=== PATIENT | male | born 1935 | race Caucasian/White ===

== ENCOUNTER 2016-10-11 17:01 | Emergency (ER) | payer MEDICARE ==
[~2016-10-11] VITALS: Ht 185.4 cm; Wt 75.3 kg
[~2016-10-11 17:01] MED LIST: ACET325T9 PO; ASPI81TA50 PO; CARV25TA PO; CHOL10003 PO; CYAN10002 IJ; FLUT16SP NS; FLUT9.9S NS; LEVO25TA4 PO; LISI-334 PO; MAG355OR17 PO; MAGN2400 PO; METH29OI TP; MIRT15TA3 PO; MIRT15TA5 PO; MIRT7.5T8 PO; OLAN5TAB7 PO; OXYB5TAB7 PO; SERT25TA4 PO; TRAZ50TA15 PO; [UNRECOGNIZED DRUG - CODE] TP
[2016-10-11] MEDS ORDERED: IOHEXOL 300 MG/ML 75 ML VIAL. IV ONE (17:15)
[2016-10-11] MEDS ORDERED: CONTRAST GIVEN MC PRN (17:30)
--- NOTE | 2016-10-11 17:34 | PHYS DOC ---
General Chief Complaint: DIFFICULTY SWALLOWING Stated Complaint: DIFF SWALLOWING Time Seen by MD: 17:08 Source: patient, family (daughter) Exam Limitations: no limitations Problems: History of Present Illness Initial Comments Pt is 81/M to ED with difficulty swallowing. Pt/daughter state that immediately prior to arrival pt ate a small piece of chicken diced/prepared by his daughter. Pt choked/struggled to get it down and had dry cough. Next bite was pudding, pt swallowed it down and vomitted. Pt hasn't eaten anything since, he's been spitting his secretions. No prior stricture or dilatation, pt has h/o GERD symptoms and used to smoke cigars. No cp/sob/fever/chills/diarrhea, no blood in emesis. Daughter states pt has had increasing difficulty swallowing recently but things haven't gone this far. She also mentions that he has CHF, he's had increased LE edema past week according to daughter. Timing/Duration: 1-3 hours Severity: moderate Modifying Factors: worse with eating, improves with rest Associated Symptoms: cough, nausea/vomiting, other Allergies: Coded Allergies: No Known Drug Allergies (Unverified , 09/13/16) Past Medical History Medical History: other (HTN, CAD, CHF) Surgical History: pacemaker (defibrillator) Social History Smoker: quit greater than 1 year, cigar Alcohol: occasionally Drugs: none Review of Systems Constitutional: denies chills, denies fever Respiratory: coughdenies shortness of breath, denies wheezing Cardiovascular: see HPIdenies chest pain, edemadenies palpitations Gastrointestinal: see HPIdenies abdominal pain, denies constipation, denies diarrhea, nausea vomiting Genitourinary: denies dysuria, denies frequency, denies hematuria Musculoskeletal: denies back pain, denies joint swelling, denies neck pain Psychiatric/Neurological: denies headache, denies seizure, denies weakness Physical Exam General Appearance: WD/WN, mild distress (appears comfortable, spitting secretions) Eyes: bilateral eye EOMI, bilateral eye PERRL, bilateral eye normal inspection Ear, Nose, Throat: hearing grossly normal, normal ENT inspection, normal pharynx Neck: non-tender, supple Respiratory: chest non-tender, no respiratory distress, other (coarse BS b/l) Cardiovascular: normal peripheral pulses, regular rate, rhythm Gastrointestinal: normal bowel sounds, non tender, soft (no mass) Back: no CVA tenderness, no vertebral tenderness Extremities: normal range of motion, non-tender (3+ pitting LE edema w/ compression stocking) 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 See his documentation for results/disposition. CORAZON GRIFFIN DO Oct 11, 2016 17:34
[2016-10-11] MEDS ORDERED: ONDANSETRON PF 4 MG/2 ML VIAL. IV ONE (17:40)
[2016-10-11] MEDS ORDERED: FAMOTIDINE 20 MG/2 ML VIAL IVP ONE (17:40)
[2016-10-11] MEDS ORDERED: GLUCAGON,HUMAN RECOMBINANT 1 MG KIT. IV ONE (17:40)
[2016-10-11] MEDS ORDERED: LIDO:MAALOX 1:1 20 ML SINGLE DOSE PO ONE (17:40)
[2016-10-11 17:48] LABS: BASO % 1 % (0-3); EOS # 0.1 x10^3/uL (0.0-0.7); EOS % 3 % (0-3); HEMATOCRIT 35.4 % (39.0-53.0); HEMOGLOBIN 11.7 g/dL (13.0-17.5); LYMPH % 22 % (24-48); MEAN CORPUSCULAR HEMOGLOBIN 32 pg (25-35); MEAN CORPUSCULAR HGB CONC 33 g/dL (31-37); MEAN CORPUSCULAR VOLUME 96 fL (79-100); MONO # 0.4 x10^3/uL (0.0-1.1); MONO % 9 % (0-9); NEUT # 3.1 x10^3uL (1.8-7.7); NEUT % 66 % (31-73); PLATELET COUNT 218 x10^3/uL (140-400); RED BLOOD COUNT 3.68 x10^6/uL (4.30-5.70); RED CELL DISTRIBUTION WIDTH 14.7 % (11.5-14.5); WHITE BLOOD COUNT 4.7 x10^3/uL (4.0-11.0)
[2016-10-11] MEDS ORDERED: methylPREDNISolone SOD SUCC PF 125 MG/2 ML VIAL. IV ONE (18:00)
[2016-10-11 18:06] LABS: CALCIUM 8.5 mg/dL (8.5-10.1); CREATININE 0.9 mg/dL (0.7-1.3); GFR 81.4; POTASSIUM 4.5 mmol/L (3.5-5.1)
--- NOTE | 2016-10-11 18:16 | RAD ---
PROCEDURE Two-view chest HISTORY Aspiration COMPARISON None available FINDINGS Two views of the chest are submitted. There is triple lead left electronic cardiac device. There is atherosclerotic calcification near aortic arch. There is no pneumothorax. There is blunting of the left costophrenic sulcus on the PA view although no appreciable dependent pleural fluid on the lateral view. There is mild left base airspace opacity. There may be emphysema. IMPRESSION 1. There is mild left base airspace opacity of uncertain chronicity, could be due to component of pleural parenchymal fibrotic change. Radiographic followup may be beneficial unless old exams to confirm stability. Electronically signed by: Jan Butts MD (Oct 11, 2016 18:14:46)
--- NOTE | 2016-10-11 18:17 | RAD ---
PROCEDURE Neck soft tissue radiographs. HISTORY Aspiration COMPARISON None FINDINGS Two views of the neck utilizing soft tissue protocol are submitted. Epiglottis does not appear significantly thickened. No radiopaque foreign body is identified. There could be some mild deviation of the airway to the left although airway poorly visualized on the AP view. There is atherosclerotic calcification in region of left carotid artery in the neck. IMPRESSION 1. There is no significant thickening of the epiglottis. No radiopaque foreign body is identified. Electronically signed by: Jan Butts MD (Oct 11, 2016 18:16:12)
[2016-10-11 18:40] VITALS: BP 85/45
== END 2016-10-11 18:40 | disposition home or self-care (01) ==
LOC: ER 17:01
DX: R13.10 Dysphagia, unspecified (principal); D64.9 Anemia, unspecified; K21.9 Gastro-esophageal reflux disease without esophagitis; F03.90 Unspecified dementia, unspecified severity, without behavioral disturbance, psychotic disturbance, mood disturbance, and anxiety; I10 Essential (primary) hypertension; I25.10 Atherosclerotic heart disease of native coronary artery without angina pectoris; Z87.891 Personal history of nicotine dependence; Z95.0 Presence of cardiac pacemaker
CPT/HCPCS: 36415; 70360; 71020; 80048; 83880; 84484; 85027; 96374; 96375; 99285; J1610; J2405; J2930; S0028